=== PATIENT | male | born 1960 | race Caucasian/White ===

== ENCOUNTER → 2018-04-17 | Outpatient (CLI) | payer OTHER ==
--- NOTE | 2018-04-17 11:58 | Diagnostic Imaging Report ---
EXAMINATION: PA and lateral views of the chest. An rib series COMPARISON: None CLINICAL HISTORY: Right posterior rib pain DISCUSSION: Lines/tubes: None. Lungs: The lungs are well inflated and clear. No pneumonia or pulmonary edema. Pleura: No pleural effusion or pneumothorax. Heart and mediastinum: The cardiomediastinal silhouette is normal. Bones and soft tissues: No acute bony abnormalities. Remote healed right lateral 10th rib fracture. IMPRESSION: No acute cardiopulmonary abnormalities. Remote healed right lateral 10th rib fracture. Signed by: Dr. Thai Henderson M.D. on 04/17/2018 11:55 AM
--- NOTE | 2018-04-17 12:06 | Diagnostic Imaging Report ---
Exam: Thoracic spine 2 views History: Back pain Comparison: None. Findings: No fracture or malalignment. 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 No abnormal soft tissue calcification or soft tissue defect. Impression: No acute osseous abnormality. No compression fracture. Multilevel thoracic spondylosis. Signed by: Dr. Thai Henderson M.D. on 04/17/2018 12:03 PM
== END ==
LOC: RAD 10:49
PROVIDERS: ATTEND Internal Medicine
DX: R07.9 Chest pain, unspecified (principal); R07.89 Other chest pain; M54.6 Pain in thoracic spine; M47.894 Other spondylosis, thoracic region
CPT/HCPCS: 71046; 71101; 72070